=== PATIENT | female | born 1950 | race Caucasian/White ===

== ENCOUNTER → 2017-06-20 | Outpatient (CLI) | payer OTHER ==
[2015-08-19 14:12] VITALS: BP 117/58
[~2017-06-20] MED LIST: NS 100 ML IV 100 ML IV ONE
[2017-06-20 09:54] LABS: CREATININE 1.02 mg/dL (0.55-1.02)
--- NOTE | 2017-06-20 12:24 | CT ---
CT CHEST WITH IV CONTRAST - PE PROTOCOL HISTORY: Personal history of pulmonary embolism Comparison: None Technique: Non gated axial images of the chest were obtained with intravenous contrast according to p monary embolism protocol. MIPS were reconstructed. Dose reduction techniques including Automated Ex posure Control (AEC) and adjustment of mA and kV were utlized. Findings: No evidence of a pulmonary embolism to the level of the segmental pulmonary arteries. The heart is normal in size. No pericardial effusion. No suspicious mediastinal or axillary lymph no lee. No focal consolidations, pleural effusions or pneumothorax. Airways are patent. No suspicious pulmona ry nodules or masses. Limited images of the upper abdomen are unremarkable. No aggressive osseous lesions. IMPRESSION: 1. No evidence of pulmonary embolism. Reported By:
== END ==
LOC: RAD 09:20
PROVIDERS: ATTEND Nurse Practitioner Family
DX: Z86.711 Personal history of pulmonary embolism (principal)
CPT/HCPCS: 36415; 71275; 82565; 84520; A4222